=== PATIENT | female | born 1965 | race Caucasian/White ===

== ENCOUNTER → 2016-10-02 | Outpatient (CLI) | payer MEDICARE, OTHER ==
[~2016-10-02] MED LIST: ACETAMINOPHEN PO; ASPIRIN E.C.81 M2 PO; CLEOCIN300 MG PO; CLINDAMYCIN HC300 MG PO; ELAVIL10 MG PO; FLONASE16 G1 BOTH NARES; FLUOXETINE HCL20 MG PO; Feosol PO; GLUCOPHAGE500 M1 PO; GLUCOPHAGE500 MG PO; Glucophage PO; HYDROCODONE PO; IBUPROFEN800 MG PO; LORTAB 5-325 M1 EACH PO; LOTRISONE15 GM TP; MOTRIN600 MG PO; MUCUS ER600 MG PO; Motrin PO; NAPROSYN250 MG PO; NAPROSYN500 MG PO; NAPROXEN500 MG PO; Naprosyn PO; PERCOCET 5/31 TABLET PO; PRAVACHOL20 MG PO; PREDNISONE20 MG PO; PROAIR HFA8.5 GM IH; RYBIX ODT50 MG PO; ULTRAM50 MG PO; VICODIN 5-5001 EACH PO; ZANTAC150 MG PO; ZANTAC75 MG PO; ZITHROMAX Z-PA250 MG PO; Zantac PO; Zestril,Prinivil PO; [UNRECOGNIZED DRUG - REMARK]
== END | disposition home or self-care (01) ==
LOC: CDC 10:11
DX: M25.552 Pain in left hip (principal); M76.02 Gluteal tendinitis, left hip
CPT/HCPCS: 93000

== ENCOUNTER 2016-10-13 17:59 | Emergency (ER) | payer OTHER ==
[~2016-10-13] VITALS: Ht 165.1 cm; Wt 115.3 kg
[2016-10-13 19:54] LABS: BASOPHIL COUNT 0.1 K/uL (0-0.1); EOSINOPHIL (%) 1.4 % (0-5); EOSINOPHIL COUNT 0.1 K/uL (0-0.3); HEMATOCRIT 37.8 % (36.0-46.0); IMMATURE GRANULOCYTE (%) 0.3 % (0.0-0.7); INSTRUMENT ABS NEUTROPHIL CT 4.9 K/uL; LYMPHOCYTE COUNT 1.8 K/uL (1.0-2.8); MCH 28.5 PG (29.0-34.0); MCV 89.2 FL (83-99); MEAN PLAT.VOLUME 10.6 uM^3 (9.5-12.4); MONOCYTE (%) 7.3 % (3-12); MONOCYTE COUNT 0.5 K/uL (0-0.8); NEUTROPHIL (%) 66.3 % (45-76); NEUTROPHIL COUNT 4.9 K/uL (1.8-6.4); PLATELET COUNT 200 K/uL (156-360); RBC DIS.WIDTH-CV 12.5 % (11.8-14.6); RBC DIS.WIDTH-SD 40.6 % (39-53); RED BLOOD COUNT 4.24 M/uL (3.80-5.20); WHITE BLOOD COUNT 7.3 K/uL (4.1-10.2)
[2016-10-13 20:00] LABS: CHLORIDE 103 mEq/L (99-109); POTASSIUM 3.9 mEq/L (3.7-5.4); SODIUM 140 mEq/L (136-147)
[2016-10-13 20:01] LABS: GLUCOSE 103 mg/dL (70-99)
[2016-10-13 20:03] LABS: ANION GAP 7 MEQ/L (2-14)
[2016-10-13 20:05] LABS: GFR ESTIMATE (CALCULATED) > 59 mL/min/
[2016-10-13 20:06] LABS: UREA NITROGEN (BUN) 10 mg/dL (9-23)
[2016-10-14 00:04] VITALS: BP 113/77
== END 2016-10-14 00:05 | disposition home or self-care (01) ==
LOC: EME 17:59
PROVIDERS: Emergency Medicine
DX: G89.18 Other acute postprocedural pain (principal); M25.552 Pain in left hip; I25.2 Old myocardial infarction; I10 Essential (primary) hypertension; J45.909 Unspecified asthma, uncomplicated; K21.9 Gastro-esophageal reflux disease without esophagitis; E11.9 Type 2 diabetes mellitus without complications; F32.9 Major depressive disorder, single episode, unspecified; Z87.891 Personal history of nicotine dependence; Z88.0 Allergy status to penicillin; Z91.040 Latex allergy status; Z88.8 Allergy status to other drugs, medicaments and biological substances; Z91.018 Allergy to other foods; Z87.442 Personal history of urinary calculi
CPT/HCPCS: 73701; 80048; 85025; 99281; 99284; J2405; J3010; J7030

== ENCOUNTER 2017-01-09 11:55 | Emergency (ER) | payer OTHER ==
[~2017-01-09] VITALS: Ht 162.6 cm; Wt 108.6 kg
[2017-01-09 12:01] VITALS: BP 114/66
[2017-01-09] MEDS ORDERED: LYRICA50 MG PO (12:47)
== END 2017-01-09 13:25 | disposition home or self-care (01) ==
LOC: EME 11:55
PROC: 0H97XZZ Drainage of Abdomen Skin, External Approach (ICD-10-PCS; principal; 2017-01-09)
DX: L02.211 Cutaneous abscess of abdominal wall (principal); E11.9 Type 2 diabetes mellitus without complications; Z87.891 Personal history of nicotine dependence
CPT/HCPCS: 87070; 87075; 87077; 87147; 87186; 87205; 99281; 99284

== ENCOUNTER 2017-06-28 16:56 | Observation (INO) | payer OTHER ==
[~2017-06-28] VITALS: Ht 167.6 cm; Wt 113.9 kg
[~2017-06-28 16:56] MED LIST changes: +LYRICA50 MG PO
[2017-06-28 18:05] LABS: HEMATOCRIT 36.8 % (36.0-46.0); HEMOGLOBIN 12.5 G/DL (11.9-15.5); MCH 29.9 PG (29.0-34.0); PLATELET COUNT 210 K/uL (156-360); RBC DIS.WIDTH-CV 12.9 % (11.8-14.6); RBC DIS.WIDTH-SD 41.1 % (39-53); RED BLOOD COUNT 4.18 M/uL (3.80-5.20); WHITE BLOOD COUNT 7.3 K/uL (4.1-10.2)
[2017-06-28 18:17] LABS: CHLORIDE 106 mEq/L (99-109); POTASSIUM 4.1 mEq/L (3.7-5.4)
[2017-06-28 18:18] LABS: SODIUM 139 mEq/L (136-147)
[2017-06-28 18:19] LABS: GLUCOSE 114 mg/dL (70-99)
[2017-06-28 18:23] LABS: CREATININE 0.8 mg/dL (0.6-1.3); GFR ESTIMATE (CALCULATED) > 59 mL/min/
[2017-06-28 18:24] LABS: UREA NITROGEN (BUN) 17 mg/dL (9-23)
[2017-06-28 18:32] LABS: TROP-I INTERPRETATION NEGATIVE; TROPONIN-I < 0.01 ng/mL (0.0-0.30)
[2017-06-28] MEDS ORDERED: CHEWABLE-VITE1 EACH PO (20:26)
[2017-06-28] MEDS ORDERED: BETAMETHASONE D15 G1 TP (20:27)
[2017-06-28] MEDS ORDERED: CARTIA XT180 MG PO (20:28)
[2017-06-28] MEDS ORDERED: TYLENOL REGULA325 MG PO (20:28)
[2017-06-28 22:22] LABS: TROP-I INTERPRETATION NEGATIVE; TROPONIN-I < 0.01 ng/mL (0.0-0.30)
[2017-06-28 22:47] VITALS: BP 143/63
[2017-06-29 03:57] VITALS: BP 120/68
[2017-06-29 05:31] LABS: HEMATOCRIT 36.8 % (36.0-46.0); MCHC 32.6 G/DL (30.0-36.0); MCV 88.9 FL (83-99); PLATELET COUNT 186 K/uL (156-360); RBC DIS.WIDTH-CV 13.1 % (11.8-14.6); RBC DIS.WIDTH-SD 42.6 % (39-53); RED BLOOD COUNT 4.14 M/uL (3.80-5.20); WHITE BLOOD COUNT 5.6 K/uL (4.1-10.2)
[2017-06-29 05:39] LABS: TROP-I INTERPRETATION NEGATIVE; TROPONIN-I < 0.01 ng/mL (0.0-0.30)
[2017-06-29 06:00] LABS: CHLORIDE 109 MEQ/L (99-109); CREATININE 0.6 MG/DL (0.6-1.3); GFR ESTIMATE (CALCULATED) > 59 mL/min/; GLUCOSE 101 mg/dL (70-99); POTASSIUM 4.2 MEQ/L (3.7-5.4); SODIUM 142 MEQ/L (136-147); UREA NITROGEN (BUN) 14 mg/dL (9-23)
[2017-06-29 07:30] VITALS: BP 108/53
[2017-06-29] MEDS ORDERED: ASPIR-LOW81 MG PO (13:29)
== END 2017-06-29 16:42 | disposition home or self-care (01) ==
LOC: EME 16:56 → EDOF 20:59 → ENRESERV 21:04 → 5WEST 22:33
PROVIDERS: Hospitalist; Internal Medicine
DX: R07.89 Other chest pain (principal); I10 Essential (primary) hypertension; E66.9 Obesity, unspecified; I47.1 Supraventricular tachycardia; J45.909 Unspecified asthma, uncomplicated; E11.9 Type 2 diabetes mellitus without complications; K21.9 Gastro-esophageal reflux disease without esophagitis; F31.9 Bipolar disorder, unspecified; R20.2 Paresthesia of skin; R91.8 Other nonspecific abnormal finding of lung field; Z90.710 Acquired absence of both cervix and uterus; Z82.49 Family history of ischemic heart disease and other diseases of the circulatory system; Z88.0 Allergy status to penicillin; Z88.1 Allergy status to other antibiotic agents; Z91.048 Other nonmedicinal substance allergy status; Z91.040 Latex allergy status; Z91.018 Allergy to other foods; Z87.891 Personal history of nicotine dependence
CPT/HCPCS: 71046; 71250; 80048; 83036; 84484; 85027; 85610; 93005; 99281; 99285; G0378; J1650

== ENCOUNTER 2017-08-21 14:23 | Emergency (ER) | payer OTHER ==
[~2017-08-21] VITALS: Ht 165.1 cm; Wt 110.5 kg
[~2017-08-21 14:23] MED LIST changes: +ASPIR-LOW81 MG PO; +BETAMETHASONE D15 G1 TP; +CARTIA XT180 MG PO; +CHEWABLE-VITE1 EACH PO; +TYLENOL REGULA325 MG PO
[2017-08-21 15:04] LABS: BASOPHIL (%) 0.9 % (0-1); BASOPHIL COUNT 0.1 K/uL (0-0.1); EOSINOPHIL COUNT 0.2 K/uL (0-0.3); HEMATOCRIT 38.2 % (36.0-46.0); HEMOGLOBIN 13.1 G/DL (11.9-15.5); IMMATURE GRANULOCYTE (%) 0.2 % (0.0-0.7); LYMPHOCYTE (%) 24.6 % (15-42); LYMPHOCYTE COUNT 1.4 K/uL (1.0-2.8); MCH 29.8 PG (29.0-34.0); MCHC 34.3 G/DL (30.0-36.0); MONOCYTE (%) 5.8 % (3-12); MONOCYTE COUNT 0.3 K/uL (0-0.8); NEUTROPHIL (%) 65.5 % (45-76); NEUTROPHIL COUNT 3.7 K/uL (1.8-6.4); PLATELET COUNT 206 K/uL (156-360); RBC DIS.WIDTH-CV 12.3 % (11.8-14.6); RBC DIS.WIDTH-SD 39.1 % (39-53); RED BLOOD COUNT 4.39 M/uL (3.80-5.20); WHITE BLOOD COUNT 5.7 K/uL (4.1-10.2)
[2017-08-21 15:13] LABS: D-DIMER ELISA < 150.00 ng/mLDDU (<230)
[2017-08-21 15:16] LABS: CHLORIDE 107 mEq/L (99-109); POTASSIUM 3.9 mEq/L (3.7-5.4); SODIUM 142 mEq/L (136-147)
[2017-08-21 15:17] LABS: GLUCOSE 101 mg/dL (70-99)
[2017-08-21 15:21] LABS: CREATININE 0.8 mg/dL (0.6-1.3); GFR ESTIMATE (CALCULATED) > 59 mL/min/
[2017-08-21 15:22] LABS: UREA NITROGEN (BUN) 9 mg/dL (9-23)
[2017-08-21 15:25] LABS: TROP-I INTERPRETATION NEGATIVE; TROPONIN-I < 0.01 ng/mL (0.0-0.30)
[2017-08-21 17:13] LABS: TROP-I INTERPRETATION NEGATIVE; TROPONIN-I < 0.01 ng/mL (0.0-0.30)
[2017-08-21] MEDS ORDERED: ULTRAM50 MG PO (17:24)
[2017-08-21 18:17] VITALS: BP 120/74
== END 2017-08-21 18:19 | disposition home or self-care (01) ==
LOC: EME 14:23
PROVIDERS: Emergency Medicine
DX: R07.9 Chest pain, unspecified (principal); I25.2 Old myocardial infarction; E11.9 Type 2 diabetes mellitus without complications; I10 Essential (primary) hypertension; J45.909 Unspecified asthma, uncomplicated; F32.9 Major depressive disorder, single episode, unspecified; K21.9 Gastro-esophageal reflux disease without esophagitis; F41.9 Anxiety disorder, unspecified; Z88.0 Allergy status to penicillin; Z91.040 Latex allergy status; Z87.891 Personal history of nicotine dependence
CPT/HCPCS: 71045; 80048; 84484; 85025; 85379; 93005; 99281; 99285

== ENCOUNTER 2017-08-22 21:56 | Emergency (ER) | payer OTHER ==
[~2017-08-22] VITALS: Ht 162.6 cm; Wt 110.4 kg
[2017-08-22 22:29] LABS: HEMATOCRIT 39.1 % (36.0-46.0); HEMOGLOBIN 13.6 G/DL (11.9-15.5); MCH 30.2 PG (29.0-34.0); MCHC 34.8 G/DL (30.0-36.0); MCV 86.9 FL (83-99); RBC DIS.WIDTH-CV 12.2 % (11.8-14.6); RBC DIS.WIDTH-SD 38.8 % (39-53); WHITE BLOOD COUNT 7.7 K/uL (4.1-10.2)
[2017-08-22 22:39] LABS: CHLORIDE 103 mEq/L (99-109); POTASSIUM 3.7 mEq/L (3.7-5.4); SODIUM 140 mEq/L (136-147)
[2017-08-22 22:40] LABS: GLUCOSE 132 mg/dL (70-99)
[2017-08-22 22:44] LABS: CREATININE 0.9 mg/dL (0.6-1.3); GFR ESTIMATE (CALCULATED) > 59 mL/min/
[2017-08-22 22:44] LABS: PLATELET COUNT 221 K/uL (156-360)
[2017-08-22 22:45] LABS: UREA NITROGEN (BUN) 12 mg/dL (9-23)
[2017-08-22 22:52] LABS: TROP-I INTERPRETATION NEGATIVE; TROPONIN-I < 0.01 ng/mL (0.0-0.30)
[2017-08-23 00:56] LABS: ALBUMIN 4.6 g/dL (3.2-4.8)
[2017-08-23 00:59] LABS: TOTAL PROTEIN 7.4 g/dL (6.4-8.3)
[2017-08-23 01:01] LABS: TOTAL BILIRUBIN 0.5 mg/dL (0.0-1.0)
[2017-08-23 01:02] LABS: ALKALINE PHOSPHATASE 124 IU/L (3-129)
[2017-08-23 01:04] LABS: AST (GOT) 20 IU/L (2-34); DIRECT BILIRUBIN 0.2 mg/dL (0.0-0.3)
[2017-08-23 01:05] LABS: ALT (GPT) 41 IU/L (3-49); LIPASE 41 U/L (1.0-51.0)
[2017-08-23 02:59] VITALS: BP 121/87
== END 2017-08-23 02:59 | disposition home or self-care (01) ==
LOC: EME 21:56 → EDOF 08-23 00:27 → EME 08-23 00:27 → EDOF 08-23 00:27 → ENRESERV 08-23 00:31 → CANRESERV 08-23 00:59 → ENRESERV 08-23 00:59
DX: N60.12 Diffuse cystic mastopathy of left breast (principal); N60.11 Diffuse cystic mastopathy of right breast; R07.89 Other chest pain; I25.2 Old myocardial infarction; Z87.442 Personal history of urinary calculi; K21.9 Gastro-esophageal reflux disease without esophagitis; J45.909 Unspecified asthma, uncomplicated; I10 Essential (primary) hypertension; F41.9 Anxiety disorder, unspecified; F32.9 Major depressive disorder, single episode, unspecified; E11.9 Type 2 diabetes mellitus without complications; Z87.891 Personal history of nicotine dependence; Z88.0 Allergy status to penicillin; Z91.040 Latex allergy status; Z88.1 Allergy status to other antibiotic agents
CPT/HCPCS: 71046; 71275; 80048; 80076; 83690; 84484; 85027; 93005; 99281; 99285